=== PATIENT | female | born 1965 | race Caucasian/White ===

== ENCOUNTER 2024-03-08 18:00 | Outpatient (CLI) | payer BC | END 2024-03-08 18:01 | disposition home or self-care (01) | LOC: CSHSLEEP 18:00 | PROVIDERS: ATTEND Internal Medicine Cardiovascular Disease | DX: G47.33 Obstructive sleep apnea (adult) (pediatric) (principal); R53.83 Other fatigue; I11.0 Hypertensive heart disease with heart failure; I50.9 Heart failure, unspecified; E66.9 Obesity, unspecified; Z68.44 Body mass index [BMI] 60.0-69.9, adult | CPT/HCPCS: 95800 ==